=== PATIENT | male | born 1945 | race Caucasian/White ===

== ENCOUNTER → 2017-10-05 | Outpatient (CLI) | payer MEDICARE ==
--- NOTE | 2017-10-05 12:41 | US ---
EXAMINATION TYPE: US thyroid st tissue head/neck DATE OF EXAM: 10/05/2017 COMPARISON: EXAMINATION TYPE: US st tissue head/neck DATE OF EXAM: 10/05/2017 COMPARISON: NONE CLINICAL HISTORY: L72.3 infected sebaceous cyst. US findings: At left lateral neck palpable just inferior to hairline is complex hyperechoic oval mass = 1.6 x 1.6 x 1.1cm and located within 1.25cm from skin line. IMPRESSION: In the region of the palpable abnormality there is a 1.6 cm hypoechoic avascular mass. T his could relate to sebaceous cyst, less likely hematoma, or epidermoid cyst. This is 1.3 cm deep to the skin surface and excision could be performed.
== END | disposition home or self-care (01) ==
LOC: RADUSWWP 10:59
PROVIDERS: ATTEND Family Medicine
DX: R93.8 Abnormal findings on diagnostic imaging of other specified body structures (principal)
CPT/HCPCS: 76536